=== PATIENT | female | born 1965 | race Caucasian/White ===

== ENCOUNTER 2017-10-19 08:24 | Observation (INO) | payer SELFPAY ==
[~2017-10-19] VITALS: Ht 154.9 cm; Wt 80.5 kg
[2017-10-19] VITALS (9 sets, daily range): BP systolic 142–230; BP diastolic 82–115; PULSE 73–96; RESP 16–20; TEMP 97.4–97.9; O2SAT 94–98
[~2017-10-19 08:24] MED LIST: ASPI81TA82 PO; DICL50TA3 PO; LISI-363 PO; METH750T2 PO
[2017-10-19] MEDS ORDERED: METH750T PO (08:54)
[2017-10-19] MEDS ORDERED: ONDANSETRON HCL 4 MG/2 ML VIAL IV PUSH ONE (09:00)
[2017-10-19] MEDS ORDERED: SODIUM CHLORIDE 0.9% FLUSH 10 ML FLUSH IVF PRN (09:00)
[2017-10-19] MEDS ORDERED: cloNIDine HCL 0.2 MG TAB PO ONE (09:00)
[2017-10-19] MEDS ORDERED: HYDROmorphone HCL PF 2 MG/ML VIAL IV PUSH ONE (09:00)
--- NOTE | 2017-10-19 09:03 | PD ---
HPI Chief Complaint: Musculoskeletal Complaint Time Seen by Provider: 08:58 Travel History International Travel<30 days: No Contact w/Intl Traveler<30days: No Traveled to known affect area: No History of Present Illness HPI 52-year-old female patient with history of hypertension, sometimes forgets to take her blood pressure medications, presents to the ER today for 2 days history of left shoulder pains that started on its own although she states she has been living heavy objects recently, states that the pain runs from her left shoulder area down the arm. She states it hurts more with movement. She currently states is a 10 out of 10. She denies any fevers, shortness of breath , vomiting, or any other symptoms. She describes as a shoulder pain that she points from the left chest down the left arm. She had forgotten to take her blood pressure medications this morning, and her blood pressures quite elevated on initial evaluation in the ER. Modifying Factors: Worse with movements Associated Signs & Symptoms: Left shoulder pain with radiation down the left arm Risk Factors: History of hypertension PFSH Past Medical History Hx Anticoagulant Therapy: No Arthritis: Yes (BILATERAL HANDS) Anxiety: Yes Depression: Yes (7 YEARS AGO) Heart Rhythm Problems: No Cancer: No Cardiovascular Problems: Yes (htn on meds, MT ) High Cholesterol: No Chest Pain: Yes Congestive Heart Failure: No Cerebrovascular Accident: No Diabetes: No Diminished Hearing: No Gastrointestinal Disorders: Yes (CHOLITIS) GERD: Yes Genitourinary: No Headaches: Yes Hypertension: Yes (dx 2 yrs ago non comp no insur) Implanted Vascular Access Dvce: No Psychiatric: Yes Reproductive: No Migraines: No Myocardial Infarction: Yes Seizures: No Thyroid Disease: No Ulcer: No Tetanus Vaccination: Unknown ?: Not Past Surgical History Abdominal Surgery: No Cardiac Surgery: No Section: Yes Ear Surgery: No Endocrine Surgery: No Eye Surgery: No Genitourinary Surgery: No Gynecologic Surgery: No Neurologic Surgery: No Oral Surgery: No Thoracic Surgery: No Other Surgery: Yes () Family History Family Myocardial Infarction: Yes Social History Alcohol Use: Yes (SOCIALLY) Tobacco Use: Yes (1 PPD) Substance Use: No Allergies-Medications (Allergen,Severity, Reaction): Coded Allergies: No Known Allergies (Verified Adverse Reaction, Unknown, 10/19/17) Reported Meds & Prescriptions Reported Meds & Active Scripts Active Reported Methocarbamol 750 Mg Tab 750 Mg PO QID Review of Systems Except as stated in HPI: all other systems reviewed are Neg Physical Exam Narrative GENERAL: Well-developed middle age female patient who appears in moderate distress, in emotional distress, crying, anxious. Awake and oriented 3. SKIN: Focused skin assessment warm/dry. HEAD: Atraumatic. Normocephalic. EYES: Pupils equal and round. No scleral icterus. No injection or drainage. ENT: No nasal bleeding or discharge. Mucous membranes pink and moist. NECK: Trachea midline. No JVD. Supple. CARDIOVASCULAR: Regular rate and rhythm. No murmur appreciated. Pulses are present and equal bilaterally. RESPIRATORY: No accessory muscle use. Clear to auscultation. Breath sounds equal bilaterally. GASTROINTESTINAL: Abdomen soft, non-tender, nondistended. Hepatic and splenic margins not palpable. MUSCULOSKELETAL: No obvious deformities. No clubbing. No cyanosis. No edema. EXTREMITIES: No clubbing, cyanosis, or edema. Very tender to palpation in the general state of left shoulder although there is no point tenderness or obvious deformities. NEUROLOGICAL: Awake and alert. No obvious cranial nerve deficits. Motor grossly within normal limits. Normal speech. PSYCHIATRIC: Very emotional and anxious mood and affect; insight and judgment normal. Data Data Last Documented VS Vital Signs Date Time Temp Pulse Resp B/P (MAP) Pulse Ox O2 Delivery O2 Flow Rate FiO2 10/19/17 09:48 80 16 146/87 (106) 97 Nasal Cannula 2.00 10/19/17 08:29 97.9 Orders Orders Electrocardiogram (10/19/17 08:58) Basic Metabolic Panel (Bmp) (10/19/17 08:58) Ckmb (Isoenzyme) Profile (10/19/17 08:58) Complete Blood Count With Diff (10/19/17 08:58) Magnesium (Mg) (10/19/17 08:58) Prothrombin Time / Inr (Pt) (10/19/17 08:58) Act Partial Throm Time (Ptt) (10/19/17 08:58) Troponin I (10/19/17 08:58) Chest, Single Ap (10/19/17 08:58) Ecg Monitoring (10/19/17 08:58) Bilateral Bp Monitoring (10/19/17 08:58) Iv Access Insert/Monitor (10/19/17 08:58) Oximetry (10/19/17 08:58) Oxygen Administration (10/19/17 08:58) Sodium Chloride 0.9% Flush (Ns Flush) (10/19/17 09:00) Shoulder, Complete (>2vws) (10/19/17 08:58) Hydromorphone Pf Inj (Dilaudid Pf Inj) (10/19/17 09:00) Ondansetron Inj (Zofran Inj) (10/19/17 09:00) Clonidine (Catapres) (10/19/17 09:00) Admit Order (Ed Use Only) (10/19/17 10:38) Aspirin (Aspirin) (10/19/17 10:45) Labs Laboratory Tests Test 10/19/17 09:00 White Blood Count 9.7 TH/MM3 Red Blood Count 4.93 MIL/MM3 Hemoglobin 15.1 GM/DL Hematocrit 45.6 % Mean Corpuscular Volume 92.6 FL Mean Corpuscular Hemoglobin 30.7 PG Mean Corpuscular Hemoglobin Concent 33.1 % Red Cell Distribution Width 12.5 % Platelet Count 190 TH/MM3 Mean Platelet Volume 9.0 FL Neutrophils (%) (Auto) 69.8 % Lymphocytes (%) (Auto) 20.1 % Monocytes (%) (Auto) 7.6 % Eosinophils (%) (Auto) 2.0 % Basophils (%) (Auto) 0.5 % Neutrophils # (Auto) 6.8 TH/MM3 Lymphocytes # (Auto) 2.0 TH/MM3 Monocytes # (Auto) 0.7 TH/MM3 Eosinophils # (Auto) 0.2 TH/MM3 Basophils # (Auto) 0.0 TH/MM3 CBC Comment DIFF FINAL Differential Comment Prothrombin Time 9.9 SEC Prothromb Time International Ratio 1.0 RATIO Activated Partial Thromboplast Time 27.7 SEC Blood Urea Nitrogen 8 MG/DL Creatinine 0.71 MG/DL Random Glucose 128 MG/DL Calcium Level 8.8 MG/DL Magnesium Level 2.0 MG/DL Sodium Level 138 MEQ/L Potassium Level 3.9 MEQ/L Chloride Level 106 MEQ/L Carbon Dioxide Level 27.3 MEQ/L Anion Gap 5 MEQ/L Estimat Glomerular Filtration Rate 87 ML/MIN Total Creatine Kinase 94 U/L Troponin I LESS THAN 0.02 NG/ML MDM Medical Decision Making Medical Screen Exam Complete: Yes Emergency Medical Condition: Yes Medical Record Reviewed: Yes Interpretation(s) EKG shows NSR, no ST elevation or depression, and no arrhythmias. No significant T-wave inversions. Laboratory Tests Test 10/19/17 09:00 Random Glucose 128 MG/DL (74-106) Estimat Glomerular Filtration Rate 87 ML/MIN (>89) Troponin I LESS THAN 0.02 NG/ML Last 24 hours Impressions Shoulder X-Ray 10/19/17857 Signed Impressions: Service Date/Time: Thursday, October 19, 2017 09:13 - CONCLUSION: Negative exam. Nile Wyman MD Chest X-Ray 10/19/17857 Signed Impressions: Service Date/Time: Thursday, October 19, 2017 09:13 - CONCLUSION: No acute disease. Nile Wyman MD Differential Diagnosis Left shoulder pains, elevated blood pressures: Shoulder strain versus muscle spasms versus fractures versus radiculopathy versus atypical chest pain, ACS versus hypertensive urgency Narrative Course Lab work and x-rays were fairly unremarkable. EKG did not show any signs of acute ST-T changes. Patient has a fairly poorly controlled hypertension and she was given both medications for pain and clonidine 9 for the blood pressure. On reevaluation at 10:30 AM, the shoulder pain is improved and her blood pressure has improved. However, she also relates to me that last night she had a constant left-sided chest pain as well that was not affected by movement. She has had a previous MT as well and considering her ongoing smoking and poorly controlled hypertension, I am suspecting possible atypical chest pain and will like to get her admitted for further evaluation. Case was discussed with Dr. Valle for admission. Diagnosis Primary Impression: Left shoulder pain Additional Impressions: Chest pain Hypertension Admitting Information Admitting Physician Requests: Admit Luis Daniel Mcqueen MD Oct 19, 2017 09:03
[2017-10-19 09:19] LABS: AUTOMATED NEUTROPHIL # 6.8 TH/MM3 (1.8-7.7); BASOPHIL % 0.5 % (0.0-2.0); EOSINOPHIL # 0.2 TH/MM3 (0-0.4); HEMATOCRIT 45.6 % (35.0-46.0); HEMOGLOBIN 15.1 GM/DL (11.6-15.3); LYMPH % 20.1 % (9.0-44.0); MEAN CELL VOLUME 92.6 FL (80.0-100.0); MEAN CORPUSCULAR HEMOGLOBIN 30.7 PG (27.0-34.0); MEAN CORPUSCULAR HGB CONC 33.1 % (32.0-36.0); MONO % 7.6 % (0.0-8.0); MONOCYTE # 0.7 TH/MM3 (0-0.9); NEUT % 69.8 % (16.0-70.0); PLATELET COUNT 190 TH/MM3 (150-450); RED BLOOD COUNT 4.93 MIL/MM3 (4.00-5.30); RED CELL DISTRIBUTION WIDTH 12.5 % (11.6-17.2); WHITE BLOOD COUNT 9.7 TH/MM3 (4.0-11.0)
[2017-10-19 09:32] LABS: PROTHROMBIN TIME - PATIENT 9.9 SEC (9.8-11.6)
--- NOTE | 2017-10-19 09:51 | RADRPT ---
EXAM DATE/TIME: 10/19/2017 09:13 [facility] COMPARISON: CHEST SINGLE AP, May 23, 2016, 18:59. INDICATIONS : Left upper chest/shoulder pain radiating down arm with no known injury. MEDICAL HISTORY : Myocardial infarction. Hypertension Gastroesophageal reflux disease. Colitis. Arthritis. SURGICAL HISTORY : section. ENCOUNTER: Initial ACUITY: 2 days PAIN SCORE: 10/10 LOCATION: Left upper chest/shoulder FINDINGS: A single view of the chest demonstrates the lungs to be symmetrically aerated without evidence of mas s, infiltrate or effusion. The cardiomediastinal contours are unremarkable. Osseous structures are intact. CONCLUSION: No acute disease. Nile Wyman MD on October 19, 2017 at 9:47 Board Certified Radiologist. This report was verified electronically.
[2017-10-19 09:52] LABS: CALCIUM 8.8 MG/DL (8.5-10.1)
--- NOTE | 2017-10-19 09:52 | RADRPT ---
EXAM DATE/TIME: 10/19/2017 09:13 [facility] COMPARISON: No previous studies available for comparison. INDICATIONS : Left shoulder pain radiating down arm with no known injury. Decreased range of motion due to pain. MEDICAL HISTORY : Hypertension. Myocardial infarction. Gastroesophageal reflux disease. Colitis. Arthritis. SURGICAL HISTORY : section. ENCOUNTER: Initial ACUITY: 2 days PAIN SCORE: 10/10 LOCATION: Left shoulder FINDINGS: Multiple view examination of the left shoulder demonstrates no evidence of fracture or dislocation. The glenohumeral and acromioclavicular joints are maintained. There is normal range of motion betwee n internal and external rotation. Bony mineralization is normal. CONCLUSION: Negative exam. Nile Wyman MD on October 19, 2017 at 9:50 Board Certified Radiologist. This report was verified electronically.
[2017-10-19 09:53] LABS: BICARBONATE 27.3 MEQ/L (21.0-32.0); BLOOD UREA NITROGEN 8 MG/DL (7-18); GLUCOSE,RANDOM 128 MG/DL (74-106)
[2017-10-19 09:55] LABS: CHLORIDE 106 MEQ/L (98-107); SODIUM (NA) 138 MEQ/L (136-145)
[2017-10-19 09:56] LABS: CREATININE 0.71 MG/DL (0.50-1.00); GLOMERULAR FILTRATION RATE 87 ML/MIN (>89)
[2017-10-19 10:01] LABS: TROPONIN I LESS THAN 0.02 NG/ML (0.02-0.05)
[2017-10-19] MEDS ORDERED: BISACODYL 10 MG SUPP RECTAL PRN (10:45)
[2017-10-19] MEDS ORDERED: ACETAMINOPHEN 325 MG TAB PO PRN (10:45)
[2017-10-19] MEDS ORDERED: MAGNESIUM HYDROXIDE SUSP 30 ML CUP PO PRN (10:45)
[2017-10-19] MEDS ORDERED: SODIUM CHLORIDE 0.9% FLUSH 10 ML FLUSH IV FLUSH PRN (10:45)
[2017-10-19] MEDS ORDERED: NALOXONE HCL 0.4 MG/ML AMP IV PUSH PRN ×2 (10:45)
[2017-10-19] MEDS ORDERED: ASPIRIN 325 MG TAB PO ONE (10:45)
[2017-10-19] MEDS ORDERED: SENNOSIDES 8.6 MG TAB PO PRN (10:45)
[2017-10-19] MEDS ORDERED: LACTULOSE SYRUP 20 GM/30 ML CUP PO PRN (10:45)
[2017-10-19] MEDS ORDERED: ONDANSETRON HCL 4 MG/2 ML VIAL IVP PRN (10:45)
[2017-10-19] MEDS ORDERED: TEMAZEPAM 15 MG CAP PO PRN (10:45)
[2017-10-19] MEDS ORDERED: CYCLOBENZAPRINE HCL 10 MG TAB PO ONE (12:00)
[2017-10-19] MEDS: ENOXAPARIN SODIUM 30 MG/0.3 ML SYRINGE SQ SCH (12:45)
--- NOTE | 2017-10-19 13:49 | EKG ---
Date Performed: 10/19/2017 Time Performed: 09:08:57 PTAGE: 52 years EKG: Sinus rhythm NORMAL ECG PREVIOUS TRACING : 05/24/2016 01.20 DOCTOR: Jose Linn Interpretating Date/Time 10/19/2017 13:47:21
--- NOTE | 2017-10-19 13:58 | HHI.HP ---
[facility] Primary [facility]ician No Primary Care Physician Admission Diagnosis Atypical chest pain/hypertension Diagnoses: (1) Hypertension (2) Left shoulder pain (3) Chest pain (4) Tobacco abuse Travel History International Travel<30 Days: No Contact w/Intl Traveler <30 Da: No Traveled to Known Affected Are: No History of Present Illness Written by Mireya Jimenez, acting as scribe for Dr. Lovelace on 10/19/17 at 13:35. Ms. Milligan is a 52-year-old female patient with a known medical history of CAD with history of IA, hypertension and tobacco abuse who presented to the ED with complaints of left shoulder pain. Patient states that she began to notice the left shoulder pain roughly 2 days ago. Denies any trauma to the area or recent heavy lifting. Denies the source of her pain. The pain is sharp and shooting in nature, reportedly worse with increased movement and activity, states that she does have numbness in her left hand intermittently. Patient rates the pain a 10/ 10 on pain scale and does admit to radiation of pain throughout her chest. She does have underlying hypertension within which she does admit to noncompliance with her medications. States that her blood pressure is always elevated when she checks it. Denies any recent illness including fever, chills, headache, abdominal pain, nausea, vomiting, diarrhea or dysuria. At the time of assessment patient is unable to elevate left upper extremity more than 45 degrees with associated severe pain in her left side of her neck. Pain to palpation to left shoulder and neck. Denies any current chest pain. Does not follow with a family law paralegal or PCP. Review of Systems Constitutional: DENIES: Fever, Chills Eyes: DENIES: Blurred vision, Diplopia Respiratory: DENIES: Cough, Sputum production, Shortness of breath Cardiovascular: COMPLAINS OF: Chest pain Gastrointestinal: DENIES: Abdominal pain, Black stools, Diarrhea, Nausea, Vomiting Except as stated in HPI: all other systems reviewed are Neg Past Family Social History Past Medical History Hypertension Tobacco abuse Bilateral hand arthritis Anxiety History of depression CAD with IA history GERD Headaches Past Surgical History Reported Medications Active Reported Methocarbamol 750 Mg Tab 750 Mg PO QID Lisinopril 10 mg PO daily (when remember to take it) Allergies: Coded Allergies: No Known Allergies (Verified Adverse Reaction, Unknown, 10/19/17) Active Ordered Medications Current Medications Medications (Trade) Dose Ordered Sig/Jhony Route Start Time Stop Time Status Last Admin (NS Flush) 2 ml UNSCH PRN IV FLUSH 10/19/17 10:45 (NS Flush) 2 ml BID IV FLUSH 10/19/17 21:00 (Tylenol) 650 mg Q4H PRN PO 10/19/17 10:45 (Zofran Inj) 4 mg Q6H PRN IVP 10/19/17 10:45 (Restoril) 15 mg HS PRN PO 10/19/17 10:45 (Lovenox Inj) 30 mg Q24H SQ 10/19/17 12:00 10/19/17 12:45 (Clarita-Colace) 1 tab BID PO 10/19/17 21:00 (Milk Of Magnesia Liq) 30 ml Q12H PRN PO 10/19/17 10:45 (Senokot) 17.2 mg Q12H PRN PO 10/19/17 10:45 (Dulcolax Supp) 10 mg DAILY PRN RECTAL 10/19/17 10:45 (Lactulose Liq) 30 ml DAILY PRN PO 10/19/17 10:45 (Narcan Inj) 0.4 mg UNSCH PRN IV PUSH 10/19/17 10:45 (Morphine Inj) 2 mg Q4H PRN IV PUSH 10/19/17 12:30 (Flexeril) 10 mg Q8HR PO 10/19/17 14:00 (Habitrol 21 Mg Patch.24 Hr) 1 patch DAILY T-DERMAL 10/20/17 09:00 Miscellaneous Information 1 DAILY T-DERMAL 10/20/17 09:00 Family History Maternal medical history significant for Mi at the age of 789 years old. Social History Does admit to smoking 1 ppd of cigarettes x 20 years. Does admit to drinking a couple times per week and in that time usually drinks a 12 pack. Denies any illicit drug use. Physical Exam Vital Signs Vital Signs Date Time Temp Pulse Resp B/P (MAP) Pulse Ox O2 Delivery O2 Flow Rate FiO2 10/19/17 12:00 97.4 73 20 186/91 (122) 94 10/19/17 11:18 74 16 145/82 (103) 97 10/19/17 09:48 80 16 146/87 (106) 97 Nasal Cannula 2.00 10/19/17 09:07 16 97 Nasal Cannula 2.00 10/19/17 09:07 Nasal Cannula 2.00 10/19/17 08:29 97.9 96 16 230/115 (153) 96 Physical Exam GENERAL: This is a well-nourished, well-developed patient, in no apparent distress. SKIN: No rashes, ecchymoses or lesions. Warm and dry. HEAD: Atraumatic. Normocephalic. EYES: Pupils equal round and reactive. Extraocular motions intact. No scleral icterus. No injection or drainage. ENT: Nose without bleeding, purulent drainage or septal hematoma. Throat without erythema, tonsillar hypertrophy or exudate. Uvula midline. Airway patent. NECK: Trachea midline. No JVD or lymphadenopathy. Supple. CARDIOVASCULAR: Regular rate and rhythm without murmurs, gallops, or rubs. RESPIRATORY: Clear to auscultation. Breath sounds equal bilaterally. No wheezes , rales, or rhonchi. GASTROINTESTINAL: Abdomen soft, non-tender, nondistended. No guarding. MUSCULOSKELETAL: Extremities without clubbing, cyanosis, or edema. Left shoulder tenderness to palpation. Limited active range of motion. NEUROLOGICAL: Awake and alert. Cranial nerves II through XII intact. Motor and sensory grossly within normal limits. Five out of 5 muscle strength in all muscle groups. Normal speech. Laboratory Laboratory Tests Test 10/19/17 09:00 10/19/17 13:00 White Blood Count 9.7 Red Blood Count 4.93 Hemoglobin 15.1 Hematocrit 45.6 Mean Corpuscular Volume 92.6 Mean Corpuscular Hemoglobin 30.7 Mean Corpuscular Hemoglobin Concent 33.1 Red Cell Distribution Width 12.5 Platelet Count 190 Mean Platelet Volume 9.0 Neutrophils (%) (Auto) 69.8 Lymphocytes (%) (Auto) 20.1 Monocytes (%) (Auto) 7.6 Eosinophils (%) (Auto) 2.0 Basophils (%) (Auto) 0.5 Neutrophils # (Auto) 6.8 Lymphocytes # (Auto) 2.0 Monocytes # (Auto) 0.7 Eosinophils # (Auto) 0.2 Basophils # (Auto) 0.0 CBC Comment DIFF FINAL Differential Comment Prothrombin Time 9.9 Prothromb Time International Ratio 1.0 Activated Partial Thromboplast Time 27.7 Blood Urea Nitrogen 8 Creatinine 0.71 Random Glucose 128 Calcium Level 8.8 Magnesium Level 2.0 Sodium Level 138 Potassium Level 3.9 Chloride Level 106 Carbon Dioxide Level 27.3 Anion Gap 5 Estimat Glomerular Filtration Rate 87 Total Creatine Kinase 94 Troponin I LESS THAN 0.02 LESS THAN 0.02 Result Diagram: 10/19/1789910/19/17899 Imaging Last Impressions Shoulder X-Ray 10/19/17857 Signed Impressions: Service Date/Time: Thursday, October 19, 2017 09:13 - CONCLUSION: Negative exam. Nile Wyman MD Chest X-Ray 10/19/17857 Signed Impressions: Service Date/Time: Thursday, October 19, 2017 09:13 - CONCLUSION: No acute disease. Nile Wyman MD Septic Shock Reassessment Septic shock perfusion: reassessment completed Caprini VTE Risk Assessment Caprini VTE Risk Assessment: No/Low Risk (score <= 1) Caprini Risk Assessment Model Point Value = 1 Point Value = 2 Point Value = 3 Point Value = 5 Age 41-60 Minor surgery BMI > 25 kg/m2 Swollen legs Varicose veins or History of unexplained or recurrent spontaneous Oral contraceptives or hormone replacement Sepsis (< 1 month) Serious lung disease, including pneumonia (< 1 month) Abnormal pulmonary function Acute myocardial infarction Congestive heart failure (< 1 month) History of inflammatory bowel disease Medical patient at bed rest Age 61-74 Arthroscopic surgery Major open surgery (> 45 min) Laparoscopic surgery (> 45 min) Malignancy Confined to bed (> 72 hours) Immobilizing plaster cast Central venous access Age >= 75 History of VTE Family history of VTE Factor V Leiden Prothrombin [id number] Lupus anticoagulant Anticardiolipin antibodies Elevated serum homocysteine Heparin-induced thrombocytopenia Other congenital or acquired thrombophilia Stroke (< 1 month) Elective arthroplasty Hip, pelvis, or leg fracture Acute spinal cord injury (< 1 month) Prophylaxis Regimen Total Risk Factor Score Risk Level Prophylaxis Regimen 0-1 Low Early ambulation 2 Moderate Order ONE of the following: *Sequential Compression Device (SCD) *Heparin 5000 units SQ BID 3-4 Higher Order ONE of the following medications: *Heparin 5000 units SQ TID *Enoxaparin/Lovenox 40 mg SQ daily (WT < 150 kg, CrCl > 30 mL/min) *Enoxaparin/Lovenox 30 mg SQ daily (WT < 150 kg, CrCl > 10-29 mL/min) *Enoxaparin/Lovenox 30 mg SQ BID (WT < 150 kg, CrCl > 30 mL/min) AND/OR *Sequential Compression Device (SCD) 5 or more Highest Order ONE of the following medications: *Heparin 5000 units SQ TID (Preferred with Epidurals) *Enoxaparin/Lovenox 40 mg SQ daily (WT < 150 kg, CrCl > 30 mL/min) *Enoxaparin/Lovenox 30 mg SQ daily (WT < 150 kg, CrCl > 10-29 mL/min) *Enoxaparin/Lovenox 30 mg SQ BID (WT < 150 kg, CrCl > 30 mL/min) AND *Sequential Compression Device (SCD) Assessment and Plan Problem List: (1) Left shoulder pain ICD Code: M25.512 - Pain in left shoulder Status: Acute (2) Hypertension ICD Code: I10 - Hypertension Status: Acute (3) Chest pain ICD Code: R07.9 - Chest pain, unspecified Status: Acute (4) CAD (coronary artery disease) ICD Code: I25.10 - Atherosclerotic heart disease of [place] coronary artery without angina pectoris Status: Acute (5) Tobacco abuse ICD Code: Z72.0 - Tobacco use Status: Acute Assessment and Plan Left shoulder pain suspect musculoskeletal in nature Shoulder x-ray reviewed showing no acute fracture and negative exam. Flexeril ordered and scheduled. Morphine IV available PRN per pain scale. Supportive care. Atypical chest pain Aspirin given in ED. Serial troponins and serial EKGs have been ordered for ruling out purposes. Initial two troponins ordered have been flat. EKG reviewed showing NSR with controlled HR, no ST changes seen to indicate any acute ischaemia. Will await third troponin. Follow. Due to patients risk factors of family history, tobacco abuse, noncompliance and previous IA, a nuclear stress test has been ordered to rule out any further possibility of ischemia. Due to patient's shoulder pain she is stating she is unable to walk on the treadmill. CBC and BMP reviewed and unremarkable. Further treatment plan and hospitalization will be determined based on nuclear imaging results. Continue to follow. Patient is stable at this time and agreeable tot he plan. Hypertension, chronic: BP was significantly elevated on presentation, systolic in the 230's. Now more controlled. Patient does admit to noncompliance with BP medications at home. Will restart home Lisinopril. CAD with IA history: Continue aspirin. Tobacco abuse: Counselled on cessation. Nicotine patch ordered. DVT Prophylaxis: SCDs. Lovenox. Mireya Jimenez Oct 19, 2017 13:58
[2017-10-19] MEDS: CYCLOBENZAPRINE HCL 10 MG TAB PO SCH ×2 (14:00→21:00)
[2017-10-19] MEDS: LISINOPRIL 20 MG TAB PO SCH (14:15)
[2017-10-19] MEDS ORDERED: cloNIDine HCL 0.1 MG TAB PO PRN (14:15)
[2017-10-19] MEDS: MORPHINE SULFATE 2 MG/ML INJ IV PUSH PRN ×2 (16:14→21:00)
[2017-10-19] MEDS: DOCUSATE SODIUM 50 MG/SENNA 8.6 MG TAB PO SCH (21:00)
[2017-10-19] MEDS: SODIUM CHLORIDE 0.9% FLUSH 10 ML FLUSH IV FLUSH SCH (21:00)
[2017-10-20] VITALS (7 sets, daily range): BP systolic 132–158; BP diastolic 70–95; PULSE 73–90; RESP 17–20; TEMP 97.5–98.1; O2SAT 94–100
[2017-10-20] MEDS: MORPHINE SULFATE 2 MG/ML INJ IV PUSH PRN ×3 (00:58→10:45)
[2017-10-20] MEDS: CYCLOBENZAPRINE HCL 10 MG TAB PO SCH ×2 (06:14→14:00)
[2017-10-20 06:36] LABS: AUTOMATED NEUTROPHIL # 4.2 TH/MM3 (1.8-7.7); BASOPHIL # 0.1 TH/MM3 (0-0.2); BASOPHIL % 0.8 % (0.0-2.0); EOSINOPHIL # 0.2 TH/MM3 (0-0.4); HEMATOCRIT 40.9 % (35.0-46.0); HEMOGLOBIN 14.1 GM/DL (11.6-15.3); LYMPH % 30.7 % (9.0-44.0); LYMPHOCYTE # 2.2 TH/MM3 (1.0-4.8); MEAN CELL VOLUME 92.4 FL (80.0-100.0); MEAN CORPUSCULAR HEMOGLOBIN 31.7 PG (27.0-34.0); MEAN CORPUSCULAR HGB CONC 34.3 % (32.0-36.0); MEAN PLATELET VOLUME 9.2 FL (7.0-11.0); MONO % 8.9 % (0.0-8.0); MONOCYTE # 0.6 TH/MM3 (0-0.9); NEUT % 56.6 % (16.0-70.0); PLATELET COUNT 163 TH/MM3 (150-450); RED BLOOD COUNT 4.43 MIL/MM3 (4.00-5.30); RED CELL DISTRIBUTION WIDTH 12.5 % (11.6-17.2); WHITE BLOOD COUNT 7.3 TH/MM3 (4.0-11.0)
[2017-10-20 06:50] LABS: CALCIUM 8.6 MG/DL (8.5-10.1)
[2017-10-20 06:51] LABS: BICARBONATE 26.1 MEQ/L (21.0-32.0)
[2017-10-20 06:54] LABS: CREATININE 0.67 MG/DL (0.50-1.00)
[2017-10-20] MEDS ORDERED: NICOTINE 21 MG/24 HR PATCH T-DERMAL SCH (09:00)
[2017-10-20] MEDS ORDERED: REMOVE OLD PATCH T-DERMAL SCH (09:00)
[2017-10-20] MEDS ORDERED: REGADENOSON INJ 0.4 MG/5 ML SYR IV ONE (09:24)
[2017-10-20] MEDS: SODIUM CHLORIDE 0.9% FLUSH 10 ML FLUSH IV FLUSH SCH (10:17)
[2017-10-20] MEDS: DOCUSATE SODIUM 50 MG/SENNA 8.6 MG TAB PO SCH (10:18)
[2017-10-20] MEDS: LISINOPRIL 20 MG TAB PO SCH (10:18)
--- NOTE | 2017-10-20 10:25 | RADRPT ---
EXAM DATE/TIME: 10/20/2017 09:03 [facility] COMPARISON: No previous studies available for comparison. INDICATIONS : Chest pain radiating to left arm. Angina. Myocardial infarction. DOSE: 25.8 mCi Tc99m Myoview at stress. 8.1 mCi Tc99m Myoview at rest. 0.4 mg Lexiscan STRESS SYMPTOMS: Short of breath. EJECTION FRACTION: 56% MEDICAL HISTORY : Hypertension. Cardiovascular disease SURGICAL HISTORY : section. ENCOUNTER: Initial ACUITY: 1 day PAIN SCALE: 10/10 LOCATION: Left chest TECHNIQUE: The patient underwent pharmacologic stress with infusion of prescribed dose. Continuous ECG tracing was monitored during stress. Gated SPECT imaging was performed after stress and conventional SPECT i maging was performed at rest. The examination was performed on a SPECT/CT scanner, both attenuation and non-corrected datasets were reviewed. FINDINGS: DISTRIBUTION: The maximum perfused segment at stress is in the inferior wall. There is significant bowel activity. PERFUSION STUDY: The pattern of perfusion at stress is within normal limits. GATED STUDY: There is intact wall motion and thickening without hypokinetic or dyskinetic segments. CONCLUSION: 1. Somewhat limited exam due to significant bowel activity. 2. No definitive focal stress-induced perfusion abnormality. 3. No focal wall motion abnormality with EF of 56%. RISK CATEGORY: Low (<1% Annual Mortality Rate) Jake Hurt MD on October 20, 2017 at 10:18 Board Certified Radiologist. This report was verified electronically.
[2017-10-20] MEDS: ENOXAPARIN SODIUM 30 MG/0.3 ML SYRINGE SQ SCH (12:00)
--- NOTE | 2017-10-20 12:11 | TR ---
Date Performed: 10/20/2017 Time Performed: 09:36:53 DOCTOR: Janene Gallo DRUG LIST: CLINICAL HISTORY: REASON FOR TEST: REASON FOR ENDING: OBSERVATION: CONCLUSION: Lexiscan stress test was performed under standard four minute protocol. [place]ion[place] e was injected one minute prior to ending the test. No electrocardiographic abormalities were present to suggest ischemia. Nuclear imaging and interpretation are pending. COMMENTS:
--- NOTE | 2017-10-20 14:10 | HHI.PR ---
Subjective Remarks No chest pain overnight however she complaints of left shoulder pain pain meds and muscle relaxer helps some. Will do MRI shoulder. Nuc test is normal Objective Vitals Vital Signs Date Time Temp Pulse Resp B/P (MAP) Pulse Ox O2 Delivery O2 Flow Rate FiO2 10/20/17 12:07 97.5 77 19 150/95 (113) 94 10/20/17 12:06 97.5 77 19 150/95 (113) 94 10/20/17 11:06 18 10/20/17 08:05 99 21 10/20/17 08:00 97.6 79 20 158/89 (112) 100 10/20/17 04:00 97.6 81 18 132/70 (90) 96 10/20/17 00:00 97.7 73 17 138/75 (96) 95 10/20/17 00:00 97.7 73 17 138/75 (96) 95 10/19/17 20:00 97.9 77 16 142/89 (106) 94 10/19/17 19:47 94 21 10/19/17 16:00 97.9 73 20 147/95 (112) 95 10/19/17 15:43 98 I/O 10/19/17 10/19/17 10/19/17 10/20/17 10/20/17 10/20/17 07:00 15:00 23:00 07:00 15:00 23:00 Intake Total 675 ml Balance 675 ml Intake Oral 675 ml # Voids 1 2 Result Diagram: 10/20/17 0555 10/20/17 0555 Imaging Last Impressions Myocardial Perfusion Scan Nuc Med 10/20/17 0000 Signed Impressions: Service Date/Time: September 09:03 - CONCLUSION: 1. Somewhat limited exam due to significant bowel activity. 2. No definitive focal stress-induced perfusion abnormality. 3. No focal wall motion abnormality with EF of 56%%. RISK CATEGORY: Low (<1%% Annual Mortality Rate) Jake Hurt MD Shoulder X-Ray 10/19/1758 Signed Impressions: Service Date/Time: Thursday, October 19, 2017 09:13 - CONCLUSION: Negative exam. Nile Wyman MD Chest X-Ray 10/19/17857 Signed Impressions: Service Date/Time: Thursday, October 19, 2017 09:13 - CONCLUSION: No acute disease. Nile Wyman MD Objective Remarks GENERAL: This is a well-nourished, well-developed patient, in no apparent distress. CARDIOVASCULAR: Regular rate and rhythm without murmurs, gallops, or rubs. RESPIRATORY: Clear to auscultation. Breath sounds equal bilaterally. No wheezes , rales, or rhonchi. GASTROINTESTINAL: Abdomen soft, non-tender, nondistended. No guarding. MUSCULOSKELETAL: Extremities without clubbing, cyanosis, or edema. Left shoulder tenderness to palpation. Limited active range of motion. NEUROLOGICAL: Awake and alert. Cranial nerves II through XII intact. Motor and sensory grossly within normal limits. Five out of 5 muscle strength in all muscle groups. Normal speech. A/P Problem List: (1) Left shoulder pain ICD Code: M25.512 - Pain in left shoulder Status: Acute (2) Hypertension ICD Code: I10 - Hypertension Status: Acute (3) Chest pain ICD Code: R07.9 - Chest pain, unspecified Status: Acute (4) CAD (coronary artery disease) ICD Code: I25.10 - Atherosclerotic heart disease of [place] coronary artery without angina pectoris Status: Acute (5) Tobacco abuse ICD Code: Z72.0 - Tobacco use Status: Acute Assessment and Plan Left shoulder pain suspect musculoskeletal in nature, subdeltoid bursitis noted on MRI MRI reviewed as above Shoulder x-ray reviewed showing no acute fracture and negative exam. Flexeril ordered and scheduled. continue soma s OP to f/u with PCP as OP Morphine IV available PRN per pain scale. PO pain meds norco as need Supportive care. Atypical chest pain Aspirin given in ED. Serial troponins and serial EKGs have been ordered for ruling out purposes. Initial two troponins ordered have been flat. EKG reviewed showing NSR with controlled HR, no ST changes seen to indicate any acute ischaemia. Will await third troponin. Follow. Due to patients risk factors of family history, tobacco abuse, noncompliance and previous NE, a nuclear stress test has been ordered to rule out any further possibility of ischemia. Due to patient's shoulder pain she is stating she is unable to walk on the treadmill. CBC and BMP reviewed and unremarkable. Further treatment plan and hospitalization will be determined based on nuclear imaging results. Continue to follow. Patient is stable at this time and agreeable tot he plan. Nuc stress test reviewed and negative Hypertension, chronic: BP was significantly elevated on presentation, systolic in the 230's. Now more controlled. Patient does admit to noncompliance with BP medications at home. Will restart home Lisinopril. Advice compliance with meds and f/u with docs as OP CAD with NE history: Continue aspirin. Tobacco abuse: Counselled on cessation. Nicotine patch ordered. DVT Prophylaxis: SCDs. Lovenox. Discharge Planning DC home in stable condition to follow up as OP with PCP and consultants Meds per med reconciliations Activity ad halley as jarvis Diet healthy heart diet Mirlande Lovelace MD Oct 20, 2017 14:10
[2017-10-20] MEDS ORDERED: PERI PO (14:14)
[2017-10-20] MEDS ORDERED: NICO21DI25 T-DERMAL (14:14)
[2017-10-20] MEDS ORDERED: NORC5TAB PO (14:14)
--- NOTE | 2017-10-20 14:15 | HHI.DCPOC ---
Discharge Care Plan Goals to Promote Your Health * To prevent worsening of your condition and complications * To maintain your health at the optimal level Directions to Meet Your Goals Take your medications as prescribed Follow your dietary instruction Follow activity as directed Keep your appointments as scheduled Take your immunizations and boosters as scheduled If your symptoms worsen call your PCP, if no PCP go to Urgent Care Center or Emergency Room Smoking is Dangerous to Your Health. Avoid second hand smoke Call the 24-hour hour crisis hotline for domestic abuse at Mirlande Lovelace MD Oct 20, 2017 14:14
[2017-10-20] MEDS ORDERED: LISI30TA4 PO (14:18)
--- NOTE | 2017-10-20 16:47 | RADRPT ---
EXAM DATE/TIME: 10/20/2017 15:55 [facility] COMPARISON: No previous studies available for comparison. INDICATIONS : Left shoulder pain with no known injury. MEDICAL HISTORY : Hypertension. SURGICAL HISTORY : section. hernia ENCOUNTER: Subsequent ACUITY: 2 day PAIN SCORE: 4/10 LOCATION: Left shoulder TECHNIQUE: Multiplanar, multisequence MRI examination was performed without contrast. FINDINGS: ROTATOR CUFF: The supraspinatus, infraspinatus, subscapularis, and teres minor tendons are intact. LABRUM: Labrum is within normal limits. MARROW/CARTILAGE: Bone marrow signal is homogeneous. Glenohumeral joint articular cartilage is within normal limits. OTHER: Acromioclavicular joint demonstrates a small effusion and periarticular inflammation. Minimal subdelt oid bursitis is noted. Acromion is Type 1 (flat). Proximal biceps tendon is intact. CONCLUSION: 1. Mild arthropathy of the acromioclavicular joint with periarticular inflammation and mild subdeltoi d bursitis. 2. Otherwise intact shoulder without evidence of internal derangement. Esteban Doss MD on October 20, 2017 at 16:43 Board Certified Radiologist. This report was verified electronically.
--- NOTE | 2017-10-20 23:19 | EKG ---
Date Performed: 10/19/2017 Time Performed: 15:05:45 PTAGE: 52 years EKG: Sinus rhythm NORMAL ECG PREVIOUS TRACING : 10/19/2017 12.59 Compared to prior tracing no significant change DOCTOR: Reymundo Meléndez Interpretating Date/Time 10/20/2017 23:18:04
--- NOTE | 2017-10-20 23:26 | EKG ---
Date Performed: 10/19/2017 Time Performed: 12:59:44 PTAGE: 52 years EKG: Sinus rhythm NORMAL ECG PREVIOUS TRACING : 10/19/2017 09.08 Compared to prior tracing no significant change DOCTOR: Reymundo Meléndez Interpretating Date/Time 10/20/2017 23:26:14
== END 2017-10-20 17:45 | disposition home or self-care (01) ==
LOC: PHEFT 08:24 → PHEDA 10:39 → PH3A 11:20
PROVIDERS: ADMIT Hospitalist; ATTEND Hospitalist
DX: R07.89 Other chest pain (principal); I10 Essential (primary) hypertension; I25.10 Atherosclerotic heart disease of native coronary artery without angina pectoris; M25.512 Pain in left shoulder; F17.200 Nicotine dependence, unspecified, uncomplicated; M19.90 Unspecified osteoarthritis, unspecified site; K21.9 Gastro-esophageal reflux disease without esophagitis; R51 Headache; I25.2 Old myocardial infarction; Z91.14 Patient's other noncompliance with medication regimen
CPT/HCPCS: 71010; 73030; 73221; 78452; 80048; 82550; 83735; 84484; 85025; 85610; 85730; 93005; 93017; 96372; 96374; 96375; 96376; 99285; A9502; G0378; J1170; J1650; J2270; J2405; J2785

== ENCOUNTER 2018-01-11 14:32 | Emergency (ER) | payer SELFPAY ==
[~2018-01-11 14:32] MED LIST changes: -ASPI81TA82 PO; -DICL50TA3 PO; -LISI-363 PO; +LISI30TA4 PO; +METH750T PO; -METH750T2 PO; +NICO21DI25 T-DERMAL; +NORC5TAB PO; +PERI PO
[2018-01-11 15:19] VITALS: BP 215/105; PULSE 120; RESP 20; TEMP 102.6; O2SAT 99
[2018-01-11 15:37] VITALS: TEMP 100.8
[2018-01-11] MEDS ORDERED: SODIUM CHLOR 0.9% 1000 ML INJ 1,000 ML IV ONE ×2 (15:41→17:45)
[2018-01-11 15:42] VITALS: BP 119/65; PULSE 113; RESP 22; O2SAT 100
[2018-01-11] MEDS ORDERED: KETOROLAC TROMETHAMINE 30 MG/ML (IVP) VIAL IV PUSH ONE (15:45)
[2018-01-11] MEDS ORDERED: ACETAMINOPHEN 325 MG TAB PO ONE (15:45)
[2018-01-11 16:02] LABS: AUTOMATED NEUTROPHIL # 6.7 TH/MM3 (1.8-7.7); BASOPHIL % 0.5 % (0.0-2.0); EOSINOPHIL % 0.1 % (0.0-4.0); HEMATOCRIT 44.1 % (35.0-46.0); HEMOGLOBIN 15.4 GM/DL (11.6-15.3); LYMPH % 5.6 % (9.0-44.0); LYMPHOCYTE # 0.5 TH/MM3 (1.0-4.8); MEAN CELL VOLUME 93.4 FL (80.0-100.0); MEAN CORPUSCULAR HEMOGLOBIN 32.5 PG (27.0-34.0); MEAN CORPUSCULAR HGB CONC 34.8 % (32.0-36.0); MEAN PLATELET VOLUME 9.6 FL (7.0-11.0); MONO % 12.8 % (0.0-8.0); MONOCYTE # 1.1 TH/MM3 (0-0.9); PLATELET COUNT 220 TH/MM3 (150-450); RED BLOOD COUNT 4.73 MIL/MM3 (4.00-5.30); RED CELL DISTRIBUTION WIDTH 13.9 % (11.6-17.2); WHITE BLOOD COUNT 8.3 TH/MM3 (4.0-11.0)
[2018-01-11 16:18] LABS: PROTHROMBIN TIME - PATIENT 10.2 SEC (9.8-11.6)
--- NOTE | 2018-01-11 16:24 | RADRPT ---
EXAM DATE/TIME: 01/11/2018 15:59 [facility] COMPARISON: CHEST SINGLE AP, October 19, 2017, 9:13. INDICATIONS : Fever, legs hurt for 2 days. MEDICAL HISTORY : Hypertension. SURGICAL HISTORY : None. ENCOUNTER: Initial ACUITY: 2 weeks PAIN SCORE: 0/10 LOCATION: Bilateral chest FINDINGS: A single view of the chest demonstrates the lungs to be symmetrically aerated without evidence of mas s, infiltrate or effusion. The cardiomediastinal contours are unremarkable. Osseous structures are intact. CONCLUSION: No acute disease. Andrew Young MD on January 11, 2018 at 16:21 Board Certified Radiologist. This report was verified electronically.
[2018-01-11 16:53] LABS: ALBUMIN 3.7 GM/DL (3.4-5.0); AST (GOT) 35 U/L (15-37); BICARBONATE 22.1 MEQ/L (21.0-32.0); BLOOD UREA NITROGEN 5 MG/DL (7-18); CALCIUM 8.8 MG/DL (8.5-10.1); CHLORIDE 100 MEQ/L (98-107); GLOMERULAR FILTRATION RATE 76 ML/MIN (>89); GLUCOSE,RANDOM 102 MG/DL (74-106); SODIUM (NA) 133 MEQ/L (136-145)
[2018-01-11 16:54] LABS: ALKALINE PHOSPHATASE 95 U/L (45-117); ALT (GPT) 27 U/L (10-53); TOTAL BILIRUBIN ADULT 0.5 MG/DL (0.2-1.0); TOTAL PROTEIN 8.7 GM/DL (6.4-8.2); TROPONIN I LESS THAN 0.02 NG/ML (0.02-0.05)
[2018-01-11] MEDS ORDERED: ACETAMINOPHEN/HYDROcodone 325 MG/5 MG TAB PO ONE (17:45)
[2018-01-11 18:10] LABS: BACTERIA, URINE RARE /hpf; BILIRUBIN, URINE NEG (NEG); BLOOD, URINE MOD (NEG); GLUCOSE,URINE NEG (NEG); KETONE, URINE TRACE mg/dL (NEG); NITRITE,URINE NEG (NEG); SQUAMOUS EPITHELIAL CELL URINE 2 /hpf (0-5); URINE COLOR LIGHT-YELLOW (YELLW/STRAW); URINE LEUKOCYTE ESTERASE NEG (NEG)
[2018-01-11] MEDS ORDERED: OSEL75 PO (18:44)
--- NOTE | 2018-01-11 18:44 | PD ---
HPI Chief Complaint: Fever Time Seen by Provider: 15:32 Travel History International Travel<30 days: No Contact w/Intl Traveler<30days: No Traveled to known affect area: No History of Present Illness HPI Patient is a 52-year-old female who comes in complaining of body aches, fever, cough. She says this is been going on since yesterday. She says she has been taking [id number] medications without relief of her symptoms. She says that she has severe restless legs and her legs are hurting her. She denies any swelling or rashes to the legs. She denies any injuries to her legs. She denies nausea or vomiting. She denies abdominal pain. She only has pain to her chest when she coughs. She denies any shortness of breath. Severity is mild to moderate. PFSH Past Medical History Hx Anticoagulant Therapy: No Arthritis: Yes (BILATERAL HANDS) Anxiety: Yes Depression: Yes (7 YEARS AGO) Heart Rhythm Problems: No Cancer: No Cardiovascular Problems: Yes (htn on meds, [place] ) High Cholesterol: No Chest Pain: Yes Congestive Heart Failure: No Cerebrovascular Accident: No Diabetes: No Diminished Hearing: No Gastrointestinal Disorders: Yes (CHOLITIS) GERD: Yes Genitourinary: No Headaches: Yes Hypertension: Yes (dx 2 yrs ago non comp ) Implanted Vascular Access Dvce: No Psychiatric: Yes Reproductive: No Migraines: No Myocardial Infarction: Yes Seizures: No Thyroid Disease: No Ulcer: No Influenza Vaccination: No ?: Not Past Surgical History Abdominal Surgery: No Cardiac Surgery: No Section: Yes Ear Surgery: No Endocrine Surgery: No Eye Surgery: No Genitourinary Surgery: No Gynecologic Surgery: No Neurologic Surgery: No Oral Surgery: No Thoracic Surgery: No Other Surgery: Yes () Family History Family Myocardial Infarction: Yes Social History Alcohol Use: Yes (weekly) Tobacco Use: Yes (1 PPD) Substance Use: No Allergies-Medications (Allergen,Severity, Reaction): Coded Allergies: No Known Allergies (Verified Adverse Reaction, Unknown, 01/11/18) Reported Meds & Prescriptions Reported Meds & Active Scripts Active Tamiflu (Oseltamivir Phosphate) 75 Mg Cap 75 Mg PO BID 5 Days Lisinopril 30 Mg Tab 30 Mg PO DAILY Review of Systems Except as stated in HPI: all other systems reviewed are Neg General / Constitutional: Positive: Fever HENT: No: Headaches, Lightheadedness Cardiovascular: No: Chest Pain or Discomfort Respiratory: Positive: Cough, No: Shortness of Breath Gastrointestinal: No: Nausea, Vomiting Musculoskeletal: Positive: Myalgias Skin: No Rash, No Change in Pigmentation Neurologic: No: Weakness, Dizziness Physical Exam Narrative GENERAL: Awake and alert, no acute distress. SKIN: Focused skin assessment warm/dry. No wounds or signs of infection. HEAD: Atraumatic. Normocephalic. EYES: Pupils equal and round. No scleral icterus. ENT: No nasal bleeding or discharge. Mucous membranes pink and moist. NECK: Trachea midline. No JVD. CARDIOVASCULAR: Tachycardia. No murmur appreciated. RESPIRATORY: No accessory muscle use. Clear to auscultation. Breath sounds equal bilaterally. GASTROINTESTINAL: Abdomen soft, non-tender, nondistended. MUSCULOSKELETAL: No obvious deformities. No clubbing. No cyanosis. No edema. No joint warmth or erythema. NEUROLOGICAL: Awake and alert. No obvious cranial nerve deficits. Motor grossly within normal limits. Normal speech. PSYCHIATRIC: Appropriate mood and affect; insight and judgment normal. Data Data Last Documented VS Vital Signs Date Time Temp Pulse Resp B/P (MAP) Pulse Ox O2 Delivery O2 Flow Rate FiO2 01/11/18 15:42 113 22 119/65 (83) 100 Room Air 01/11/18 15:37 100.8 Orders Orders Sepsis Workup Initiated (01/11/18 ) Electrocardiogram (01/11/18 15:41) Complete Blood Count With Diff (01/11/18 15:41) Comprehensive Metabolic Panel (01/11/18 15:41) Prothrombin Time / Inr (Pt) (01/11/18 15:41) Act Partial Throm Time (Ptt) (01/11/18 15:41) Lactic Acid Sepsis Protocol (01/11/18 15:41) Troponin I (01/11/18 15:41) Urinalysis - C+S If Indicated (01/11/18 15:41) Influenzae A/B Antigen (01/11/18 15:41) Chest, Single Ap (01/11/18 15:41) Blood Glucose (01/11/18 15:41) Ecg Monitoring (01/11/18 15:41) Iv Access Insert/Monitor (01/11/18 15:41) Oximetry (01/11/18 15:41) Oxygen Administration (01/11/18 15:41) Acetaminophen (Tylenol) (01/11/18 15:45) Sodium Chlor 0.9% 1000 Ml Inj (Ns 1000 M (01/11/18 15:41) Ketorolac Inj (Toradol Inj) (01/11/18 15:45) Creatine Kinase (Cpk) (01/11/18 17:35) Sodium Chlor 0.9% 1000 Ml Inj (Ns 1000 M (01/11/18 17:45) Acetamin-Hydrocod 325-5 Mg ([place] 5-325 (01/11/18 17:45) Ed Discharge Order (01/11/18 18:44) Labs Laboratory Tests Test 01/11/18 15:46 01/11/18 17:50 White Blood Count 8.3 TH/MM3 Red Blood Count 4.73 MIL/MM3 Hemoglobin 15.4 GM/DL Hematocrit 44.1 % Mean Corpuscular Volume 93.4 FL Mean Corpuscular Hemoglobin 32.5 PG Mean Corpuscular Hemoglobin Concent 34.8 % Red Cell Distribution Width 13.9 % Platelet Count 220 TH/MM3 Mean Platelet Volume 9.6 FL Neutrophils (%) (Auto) 81.0 % Lymphocytes (%) (Auto) 5.6 % Monocytes (%) (Auto) 12.8 % Eosinophils (%) (Auto) 0.1 % Basophils (%) (Auto) 0.5 % Neutrophils # (Auto) 6.7 TH/MM3 Lymphocytes # (Auto) 0.5 TH/MM3 Monocytes # (Auto) 1.1 TH/MM3 Eosinophils # (Auto) 0.0 TH/MM3 Basophils # (Auto) 0.0 TH/MM3 CBC Comment DIFF FINAL Differential Comment Prothrombin Time 10.2 SEC Prothromb Time International Ratio 1.0 RATIO Activated Partial Thromboplast Time 25.5 SEC Blood Urea Nitrogen 5 MG/DL Creatinine 0.80 MG/DL Random Glucose 102 MG/DL Total Protein 8.7 GM/DL Albumin 3.7 GM/DL Calcium Level 8.8 MG/DL Alkaline Phosphatase 95 U/L Aspartate Amino Transf (AST/SGOT) 35 U/L Alanine Aminotransferase (ALT/SGPT) 27 U/L Total Bilirubin 0.5 MG/DL Sodium Level 133 MEQ/L Potassium Level 4.3 MEQ/L Chloride Level 100 MEQ/L Carbon Dioxide Level 22.1 MEQ/L Anion Gap 11 MEQ/L Estimat Glomerular Filtration Rate 76 ML/MIN Lactic Acid Level 0.5 mmol/L Total Creatine Kinase 153 U/L Troponin I LESS THAN 0.02 NG/ML Urine Color LIGHT-YELLOW Urine Turbidity CLEAR Urine pH 6.0 Urine Specific [place] 1.007 Urine Protein TRACE mg/dL Urine Glucose (UA) NEG mg/dL Urine Ketones TRACE mg/dL Urine Occult Blood MOD Urine Nitrite NEG Urine Bilirubin NEG Urine Urobilinogen LESS THAN 2.0 MG/DL Urine Leukocyte Esterase NEG Urine RBC 12 /hpf Urine WBC 1 /hpf Urine Squamous Epithelial Cells 2 /hpf Urine Bacteria RARE /hpf Microscopic Urinalysis Comment CATH-CULT NOT IND MDM Medical Decision Making Medical Screen Exam Complete: Yes Emergency Medical Condition: Yes Medical Record Reviewed: Yes Interpretation(s) ECG shows sinus tachycardia at 103, no ST elevation or depression Differential Diagnosis Influenza versus pneumonia versus UTI Narrative Course Patient is a 52-year-old female who comes in complaining of fever, body aches, cough. Exam shows tachycardia, no other acute abnormalities. IV established, labs sent. Flu swab is positive. Patient given IV fluids, Toradol, Tylenol. Given a dose of [place] for continued pain to her legs. She will be discharged with prescription for Tamiflu. She is advised to drink plenty of fluids, rest. She is advised to take Tylenol or ibuprofen as needed for pain. Advised follow-up with her doctor. Advised return to the ED as needed for any worsening symptoms. Diagnosis Primary Impression: Influenza Patient Instructions: General Instructions, Influenza (ED) Additional Instructions: Drink plenty of fluids. Take Tylenol or ibuprofen as needed for pain. Follow- up with your doctor. Take all of the Tamiflu. Return to the ED as needed for any worsening symptoms. Scripts Tramadol (Tramadol) 50 Mg Tab 50 MG PO Q6H Y for PAIN for 3 Days, #12 TAB 0 Refills Prov: Mireya Barragan MD 01/11/18 Oseltamivir (Tamiflu) 75 Mg Cap 75 MG PO BID for Mgmt Viral Infection for 5 Days, #10 CAP 0 Refills Prov: Mireya Barragan MD 01/11/18 Disposition: 01 DISCHARGE HOME Condition: Stable Mireya Barragan MD Jan 11, 2018 18:44
[2018-01-11] MEDS ORDERED: TRAM50TA PO (18:46)
--- NOTE | 2018-01-11 21:47 | EKG ---
Date Performed: 01/11/2018 Time Performed: 16:56:46 PTAGE: 52 years EKG: Baseline artifact present SINUS TACHYCARDIA ABNORMAL RHYTHM ECG Compared to prior electroca rdiogram, rate has increased PREVIOUS TRACING : 10/19/2017 15.05 DOCTOR: Corey So Interpretating Date/Time 01/11/2018 21:45:52
== END 2018-01-11 20:13 | disposition home or self-care (01) ==
LOC: NEPE 14:32
DX: J11.1 Influenza due to unidentified influenza virus with other respiratory manifestations (principal); R94.31 Abnormal electrocardiogram [ECG] [EKG]; R07.9 Chest pain, unspecified; G25.81 Restless legs syndrome; F41.9 Anxiety disorder, unspecified; F32.9 Major depressive disorder, single episode, unspecified; I10 Essential (primary) hypertension; K21.9 Gastro-esophageal reflux disease without esophagitis; F17.200 Nicotine dependence, unspecified, uncomplicated
CPT/HCPCS: 71045; 80053; 81001; 82550; 83605; 84484; 85025; 85610; 85730; 87804; 93005; 96361; 96374; 99285; J1885; J7030